=== PATIENT | male | born 1980 | race Caucasian/White ===

== ENCOUNTER → 2019-03-18 08:19 | Outpatient (BNVA) | payer MEDICAID, SELFPAY | PROVIDERS: Family Provider Nurse Practitioner Family; PCP Family Medicine | DX: I48.91 Unspecified atrial fibrillation (principal); I82.409 Acute embolism and thrombosis of unspecified deep veins of unspecified lower extremity | CPT/HCPCS: 85610 ==

== ENCOUNTER → 2019-04-11 08:32 | Outpatient (BNVA) | payer MEDICAID, SELFPAY | PROVIDERS: Family Provider Nurse Practitioner Family; PCP Family Medicine; Visit Provider Family Medicine | DX: N39.0 Urinary tract infection, site not specified (principal); R50.9 Fever, unspecified; I82.409 Acute embolism and thrombosis of unspecified deep veins of unspecified lower extremity; R31.9 Hematuria, unspecified | CPT/HCPCS: 81001; 85610; 87086; 87804 ==

== ENCOUNTER → 2019-04-27 09:01 | Outpatient (BNVA) | payer MEDICAID, SELFPAY | PROVIDERS: PCP Family Medicine; Visit Provider Family Medicine | DX: I82.409 Acute embolism and thrombosis of unspecified deep veins of unspecified lower extremity (principal) | CPT/HCPCS: 85610 ==

== ENCOUNTER 2019-05-03 06:58 | Outpatient (CLI) | payer MEDICAID, SELFPAY ==
--- NOTE | 2019-05-03 07:15 | US_ITS ---
WS: [id number] RENAL ULTRASOUND REASON FOR EXAM: Neurogenic bladder TECHNIQUE: Grayscale and Doppler ultrasound examination of the kidneys. FINDINGS: Right kidney: Right kidney measures 10.5 cm x 5.5 cm x 5.7 cm. Right kidney cortex measures 1.7 cm. N o hydronephrosis no stones. Left kidney: Left kidney measures 12.2 cm x 5.3 cm x 5.2 cm. Left kidney cortex measures 1.7 cm. No h ydronephrosis no stones. The aorta was normal no aneurysms. The urinary bladder appears to be essentially normal. US/US renal BI* [id number] IMPRESSION: Normal kidneys, ureters, and bladder.
== END 2019-05-03 06:59 | disposition home or self-care (01) ==
LOC: US 06:59
PROVIDERS: Family Provider Family Medicine; PCP Family Medicine; Visit Provider Urology
DX: N31.9 Neuromuscular dysfunction of bladder, unspecified (principal)
CPT/HCPCS: 76770

== ENCOUNTER 2019-05-03 08:27 | Outpatient (CLI) | payer MEDICAID, SELFPAY ==
--- NOTE | 2019-05-03 08:30 | CT_ITS ---
WS: [id number] CT LUMBAR SPINE, noncontrast. HISTORY: CLOSED UNSTABLE BURST FX OF 1ST LUMBAR VERTEBRA TECHNIQUE: Contiguous 2.5 mm axial imaging are performed. Sagittal and coronal reformats are submitte d and reviewed. All CT scans at [facility] use at least one of these dose optimization te chniques: automated exposure control; mA and/or kV adjustment per patient size (includes targeted exa ms where dose is matched to clinical indication); or iterative reconstruction. IV contrast: None DLP: 3103.4 mGy.cm COMPARISON: 02/01/2019 Posterior lumbar fusion extends from T11 to L3. No pedicle screws at the L1 level. Vertical rods are present bilaterally. L1 burst fracture is again identified without significant change. There is some increased sclerosis along the fracture line suggesting mild interval healing. Posterior retropulsion of the mid vertebral body by 5 mm. Slightly greater retropulsion into the LEFT subarticular recess by 7.5 mm. Fracture estimated at approximately 40%. No lucency around the pedicle screws or change in p osition. There is mild encroachment upon the ventral thecal sac, subarticular recesses and foramen at the T12- L1 level. Most significant encroachment into the subarticular recesses. Prior large laminectomy defec t at the L1 level. No residual central stenosis. Facet joint arthropathy at L1-2 and L2-3. Stable minimal compression deformity superior endplate of L2 with no change. CT/CT lumbar spine wo con* [id number] IMPRESSION: 1. Burst fracture of L1 is stable with mild interval healing. Fracture lines a re still evident. No hardware failure. 2. Posterior fusion extends from T12 to L3 with laminectomy defect at L1. 3. Burst fracture of L1 with mild encroachment into the subarticular recesses, ventral thecal sac and foramen. No interval change. 4. Healing minimal compression deformity superior endplate of L2.
== END 2019-05-03 08:28 | disposition home or self-care (01) ==
LOC: RAD 08:28
PROVIDERS: Family Provider Family Medicine; PCP Family Medicine; Visit Provider Specialist
DX: S32.012A Unstable burst fracture of first lumbar vertebra, initial encounter for closed fracture (principal); X58.XXXA Exposure to other specified factors, initial encounter; Z98.1 Arthrodesis status; N39.0 Urinary tract infection, site not specified; N31.9 Neuromuscular dysfunction of bladder, unspecified; Z87.440 Personal history of urinary (tract) infections; R33.9 Retention of urine, unspecified; R35.8 Other polyuria; F17.290 Nicotine dependence, other tobacco product, uncomplicated
CPT/HCPCS: 72131; 81001

== ENCOUNTER → 2019-05-13 09:06 | Outpatient (BNVA) | payer MEDICAID, SELFPAY | PROVIDERS: Family Provider Family Medicine; PCP Family Medicine; Visit Provider Family Medicine | DX: I82.409 Acute embolism and thrombosis of unspecified deep veins of unspecified lower extremity (principal) | CPT/HCPCS: 85610 ==

== ENCOUNTER → 2019-06-02 17:58 | Outpatient (BNVA) | payer MEDICAID, SELFPAY | PROVIDERS: Family Provider Family Medicine; PCP Family Medicine; Visit Provider Nurse Practitioner Family | DX: R19.7 Diarrhea, unspecified (principal) | CPT/HCPCS: 80053; 85610; 87493 ==

== ENCOUNTER → 2019-06-08 08:14 | Outpatient (BNVA) | payer MEDICAID, SELFPAY | PROVIDERS: Family Provider Family Medicine; PCP Family Medicine; Visit Provider Nurse Practitioner Family | DX: R19.7 Diarrhea, unspecified (principal) | CPT/HCPCS: 82274; 87338; 87505 ==

== ENCOUNTER → 2019-07-28 15:20 | Outpatient (BNVA) | payer MEDICAID, SELFPAY | PROVIDERS: Family Provider Family Medicine; PCP Family Medicine; Visit Provider Nurse Practitioner Family | DX: R31.9 Hematuria, unspecified (principal); I82.409 Acute embolism and thrombosis of unspecified deep veins of unspecified lower extremity; R10.9 Unspecified abdominal pain; R23.2 Flushing; R10.84 Generalized abdominal pain | CPT/HCPCS: 80053; 81003; 82150; 82607; 83690; 84443; 85025; 85610; 86308 ==

== ENCOUNTER 2019-08-02 07:44 | Outpatient (CLI) | payer MEDICAID, SELFPAY ==
--- NOTE | 2019-08-02 08:30 | CT_ITS ---
WS: [id number] CT LUMBAR SPINE, noncontrast. HISTORY: fracture lumbar vertebra TECHNIQUE: Contiguous 2.5 mm axial imaging are performed. Sagittal and coronal reformats are submitte d and reviewed. All CT scans at [facility] use at least one of these dose optimization te chniques: automated exposure control; mA and/or kV adjustment per patient size (includes targeted exa ms where dose is matched to clinical indication); or iterative reconstruction. IV contrast: None DLP: 2455.71 mGycm COMPARISON: 05/03/2019 Posterior thoracolumbar fusion extends from T11 to L3 with vertical rods and pedicle screws. No hardw are at the L1 level. L1 burst fracture is again identified with 5.8 mm of retropulsion of the posteri or superior endplate. Large posterior laminectomy defects at the L1 level. Comminuted fracture throug h the vertebral body involves the superior and inferior endplates and anterior and posterior endplate s. The extent of the retropulsion is unchanged. Mild deformity upon the ventral thecal sac with fract ure fragments extending into the subarticular recesses bilaterally. No progression over multiple prio r studies. Fracture lines at L1 are still apparent but there is healing. Again noted is a minimal anterior compression deformity superior endplate of L2 with healing. No loy tional or new fractures. No significant compromise of the central canal. Visualized retroperitoneum is normal. CT/CT lumbar spine wo con* [id number] IMPRESSION: 1. Status post thoracolumbar fusion for stabilization burst fracture of L1. 2. L1 burst fracture is stable with 5.3 mm retropulsion of the posterior super ior endplate and encroachment into the subarticular recesses. 3. No central stenosis at the L1 level due to a large posterior laminectomy de fect. 4. Minimal compression deformity of L2 is stable with healing.
== END 2019-08-02 07:45 | disposition home or self-care (01) ==
LOC: RADWPI 07:47
PROVIDERS: Family Provider Family Medicine; PCP Family Medicine; Visit Provider Specialist
DX: M43.26 Fusion of spine, lumbar region (principal); S32.011A Stable burst fracture of first lumbar vertebra, initial encounter for closed fracture; X58.XXXA Exposure to other specified factors, initial encounter; M43.8X6 Other specified deforming dorsopathies, lumbar region
CPT/HCPCS: 72131

== ENCOUNTER → 2019-08-16 09:38 | Outpatient (BNVA) | payer MEDICAID, SELFPAY | PROVIDERS: Family Provider Family Medicine; PCP Family Medicine; Visit Provider Family Medicine | DX: I82.409 Acute embolism and thrombosis of unspecified deep veins of unspecified lower extremity (principal) | CPT/HCPCS: 85610 ==

== ENCOUNTER 2019-08-25 08:07 | Outpatient (CLI) | payer MEDICAID, SELFPAY ==
[2019-08-25] MEDS: iohexol 300 mg/mL 100 mL Btl IV (09:07)
--- NOTE | 2019-08-25 10:00 | CT_ITS ---
WS: [id number] CT ABDOMEN PELVIS TECHNIQUE: Contrast-enhanced CT of the abdomen and pelvis with coronal and sagittal reformatted image s. CLINICAL INFORMATION: abdominal pain COMPARISON: CT July 29, 2018 DLP: 1359.[address] scans at [facility] use at least one of these dose optimization techniques: automat ed exposure control; mA and/or kV adjustment per patient size (includes targeted exams where dose is matched to clinical indication); or iterative reconstruction. FINDINGS: Prior postoperative changes thoracolumbar fusion T11-L3 for L1 burst fracture. Liver is normal. Norm al portal vein and splenic vein. Normal gallbladder. Normal spleen. Normal GE junction. No evidence o f small or large bowel obstruction. Lung bases are well aerated. Pancreas appears normal. Normal rashard kate abdominal aorta. Adrenal glands are normal. Normal renal parenchymal enhancement. Left renal cyst measuring 14 mm. No hydronephrosis. No abdominal lymphadenopathy. Mild sigmoid constipation. No inguinal lymphadenopathy. Incidental tiny fat-containing umbilical flory ia. CT/CT abdomen pelvis w con* [id number] IMPRESSION: 1. Mild sigmoid constipation. 2. No free fluid. 3. 14 mm left renal cyst. 4. Prior postoperative changes T11-L3 with laminectomy defects at L1 with stab le appearing burst fracture.
== END 2019-08-25 08:08 | disposition home or self-care (01) ==
LOC: RADWPI 08:08
PROVIDERS: Family Provider Family Medicine; PCP Family Medicine; Visit Provider Nurse Practitioner Family
DX: R10.9 Unspecified abdominal pain (principal); K59.00 Constipation, unspecified; Q61.01 Congenital single renal cyst
CPT/HCPCS: 74177; Q9967

== ENCOUNTER → 2019-12-13 09:18 | Outpatient (BNVA) | payer MEDICAID, SELFPAY | PROVIDERS: Family Provider Family Medicine; PCP Family Medicine; Visit Provider Nurse Practitioner Family | DX: R50.9 Fever, unspecified (principal) | CPT/HCPCS: 86618; 86666; 86757 ==

== ENCOUNTER 2019-12-26 09:04 | Outpatient (CLI) | payer MEDICAID, SELFPAY ==
[2019-12-26] MEDS: iohexol 300 mg/mL 100 mL Btl IV (10:28)
--- NOTE | 2019-12-26 10:30 | CT_ITS ---
WS: [id number] CT ABDOMEN PELVIS TECHNIQUE: Contrast-enhanced CT of the abdomen and pelvis with coronal and sagittal reformatted image s. CLINICAL INFORMATION: abd pain; fever COMPARISON: CT August 25, 2019 DLP: 1254.[address] scans at [facility] use at least one of these dose optimization techniques: automat ed exposure control; mA and/or kV adjustment per patient size (includes targeted exams where dose is matched to clinical indication); or iterative reconstruction. FINDINGS: Prior postoperative changes thoracolumbar fusion T11-L3 for L1 burst fracture. This is unchanged from previous. Liver is normal in appearance. Normal portal vein and splenic vein. Normal gallbladder. Sp massiel is normal in appearance. Normal GE junction. Lung bases are well aerated. Adrenal glands are normal. Normal renal parenchymal enhancement. No hydr onephrosis. Left renal cyst measuring 14 mm is unchanged. Normal pancreas. Normal portal vein and spl enic vein. Mild sigmoid constipation. No evidence of acute diverticulitis. No evidence of small or large bowel o bstruction. Normal appendix. Mild diffuse thickening of the bladder can be seen with chronic cystitis or bladder outlet obstruction. Prostate measures 4.1 x 4.3 cm slightly prominent for patient this ag e. Recommend correlation PSA. Tiny fat-containing umbilical hernia. CT/CT abdomen pelvis w con* [id number] IMPRESSION: 1. Liver and gallbladder are normal in appearance. 2. No hydronephrosis in either kidney. 3. Mild sigmoid constipation. No evidence of small or large bowel obstruction. 4. Mild diffuse bladder wall thickening can be seen with chronic cystitis or b ladder outlet obstruction. Prostate is somewhat prominent for patient this age. Recommend correlation PSA. 5. No abdominal or pelvic lymphadenopathy. 6. Prior postoperative changes thoracolumbar spine described above.
== END 2019-12-26 09:05 | disposition home or self-care (01) ==
LOC: RADWPI 09:05
PROVIDERS: Family Provider Family Medicine; PCP Family Medicine; Visit Provider Nurse Practitioner Family
DX: R10.9 Unspecified abdominal pain (principal); R50.9 Fever, unspecified; K59.00 Constipation, unspecified; N40.0 Benign prostatic hyperplasia without lower urinary tract symptoms
CPT/HCPCS: 74177; 80053; 81000; 83690; 85025; 87086; 87635; Q9967

== ENCOUNTER → 2020-01-12 09:15 | Outpatient (BNVA) | payer MEDICAID, SELFPAY | PROVIDERS: Family Provider Family Medicine; PCP Family Medicine; Visit Provider Urology | DX: R33.9 Retention of urine, unspecified (principal); N39.0 Urinary tract infection, site not specified; N31.9 Neuromuscular dysfunction of bladder, unspecified | CPT/HCPCS: 81003 ==

== ENCOUNTER → 2020-01-30 09:28 | Outpatient (BNVA) | payer MEDICAID, SELFPAY | PROVIDERS: Family Provider Family Medicine; PCP Family Medicine; Visit Provider Internal Medicine | DX: K92.1 Melena (principal) | CPT/HCPCS: 87635 ==

== ENCOUNTER 2020-02-03 07:43 | Day surgery (SDC) | payer MEDICAID, SELFPAY ==
[2020-02-02 07:17] VITALS: BMI 35.9
[2020-02-03 07:58] VITALS: BP 122/89; PULSE 79; RESP 18; TEMP 36.2; O2SAT 97
[2020-02-03] MEDS: sodium chloride 0.9% 1,000 ML 30 ML IV (08:12)
--- NOTE | 2020-02-03 08:46 | ANES.PREANE2 ---
Pre-Anesthetic Assessment Pre-Anesthetic Assessment: Height/Weight: Height 1.78 m Weight 113.398 kg Temp Pulse Resp BP Pulse Ox 97.1 F L 79 18 122/89 97 02/03/20 07:58 02/03/20 07:58 02/03/20 07:58 02/03/20 07:58 02/03/20 07:58 Preop Diagnosis: melena Proposed Procedure: Operation Date: 02/03/20 09:00 Proposed Procedures p EGD [id number] K92.1(Not Applicable) - Mathew Dominguez MD s Colonoscopy(Not Applicable) - Mathew Dominguez MD Familial anesthetic complications: None Was Beta Abimael taken within 24 hours: N/A Last intake: Intake Last Liquid Date 02/02/20 Last Liquid Time 23:00 Last Solid Date 02/01/20 Last Solid Time 08:00 Social: Social History: No alcohol and No tobacco Exam: Pre-Anes Outpt Exam: alert, oriented x 3, clear to auscultation bilaterally and regular rate & rhythm Airway: Cervical ROM: WNL MP: 3 Dentition: Full Neuropsych: Comments: neurogenic bladder d/t hx vertebral burst fracture. No paralysis. Self catheterizes Anesthetic Plan: Anesthesia: MAC Risk of > 500 ml blood loss (7ml/kg in children): No Meds/Allergies Current Medications: Current Medications Generic Name Dose Route Start Last Admin Trade Name Freq PRN Reason Stop Dose Admin Sodium Chloride 1,000 mls @ 30 ml s/hr 02/03/20 08:00 02/03/20 08:12 Sodium Chloride 0.9% IV 02/04/20 07:59 30 mls/hr .Q24H [place] Administration PFSH Anesthesia PFSH: Medical History Anxiety Burst fracture of lumbar vertebra with routine healing Cauda equina syndrome with neurogenic bladder Chronic back pain DVT (deep venous thrombosis) Hypersomnia Recurrent UTI Seasonal allergies Urinary retention Surgical History History of lumbar spinal fusion (~07/2018) Family History Father Hypertension Other Diabetes Social History Smoking and tobacco status: never smoked Second hand smoke exposure: Yes Alcohol intake: never Marital status: Single Current occupational status: employed Current occupation: strategic partnership manager [employer] History of recent travel: No Current gender identity: Male Data Anesthesia Cardiac Studies: No Data to Display
--- NOTE | 2020-02-03 09:10 | W.PM.OPSUD ---
Surgery/Procedure H&P Update DATE OF PROCEDURE: February 03, 2020 DATE H&P PERFORMED: 01/25/20 PREOP DIAGNOSIS: melena PLANNED PROCEDURE: Operation Date: 02/03/20 09:00 Proposed Procedures p EGD [id number] K92.1(Not Applicable) - Mathew Dominguez MD s Colonoscopy(Not Applicable) - Mathew Dominguez MD
[2020-02-03 09:42] VITALS: BP 116/79; PULSE 79; RESP 16; TEMP 36.1; O2SAT 95
--- NOTE | 2020-02-03 18:37 | ANE.PACU2 ---
Inpatient post-anesthesia follow up: Airway intact: Yes Vital signs: Temperature 97 F Pulse Rate 79 Respiratory Rate 16 Blood Pressure 116/79 Pulse Oximetry 95 Oxygen Delivery Me thod Nasal Cannula Oxygen Flow Rate 3 Fraction of Inspir ed Oxygen Hydration adequate: Yes Nausea and vomiting: No Pain level: 1 Mental status: Baseline
== END 2020-02-03 10:16 | disposition home or self-care (01) ==
PROVIDERS: PCP Family Medicine; Visit Provider Internal Medicine
PROC: 0DJ08ZZ Inspection of Upper Intestinal Tract, Via Natural or Artificial Opening Endoscopic (ICD-10-PCS; CPT 43235; principal; 2020-02-03 09:00)
PROC: 0DJD8ZZ Inspection of Lower Intestinal Tract, Via Natural or Artificial Opening Endoscopic (ICD-10-PCS; CPT 45378; 2020-02-03 09:00)
DX: K92.1 Melena (principal); Z82.49 Family history of ischemic heart disease and other diseases of the circulatory system; Z83.3 Family history of diabetes mellitus; K59.09 Other constipation; Z86.718 Personal history of other venous thrombosis and embolism; Z87.440 Personal history of urinary (tract) infections; Z98.1 Arthrodesis status
CPT/HCPCS: 12345; 43235; 45378; J2704; J7030

== ENCOUNTER → 2020-05-22 17:10 | Outpatient (BNVA) | payer MEDICAID, SELFPAY | PROVIDERS: PCP Family Medicine; Visit Provider Nurse Practitioner Family | DX: R19.7 Diarrhea, unspecified (principal); K58.9 Irritable bowel syndrome, unspecified; Z13.6 Encounter for screening for cardiovascular disorders; Z20.822 Contact with and (suspected) exposure to COVID-19 | CPT/HCPCS: 80053; 80061; 82306; 83735; 84443; 85025; 87635 ==

== ENCOUNTER → 2020-05-23 09:21 | Outpatient (BNVA) | payer MEDICAID, SELFPAY | PROVIDERS: PCP Family Medicine; Visit Provider Nurse Practitioner Family | DX: R19.7 Diarrhea, unspecified (principal) | CPT/HCPCS: 83630; 87493; 87506 ==

== ENCOUNTER → 2020-06-13 08:40 | Outpatient (BNVA) | payer MEDICAID, SELFPAY | PROVIDERS: PCP Family Medicine; Visit Provider Family Medicine | DX: R19.7 Diarrhea, unspecified (principal) | CPT/HCPCS: 87493 ==

== ENCOUNTER → 2020-07-11 13:17 | Outpatient (BNVA) | payer MEDICAID, SELFPAY | PROVIDERS: PCP Family Medicine; Visit Provider Internal Medicine | DX: R19.7 Diarrhea, unspecified (principal) | CPT/HCPCS: 87493 ==

== ENCOUNTER → 2021-01-15 10:20 | Outpatient (BNVA) | payer MEDICAID, SELFPAY | PROVIDERS: PCP Family Medicine; Visit Provider Nurse Practitioner Family | DX: Z20.822 Contact with and (suspected) exposure to COVID-19 (principal); Z20.828 Contact with and (suspected) exposure to other viral communicable diseases | CPT/HCPCS: 87635 ==

== ENCOUNTER → 2021-03-01 17:06 | Outpatient (BNVA) | payer MEDICAID, SELFPAY | PROVIDERS: PCP Family Medicine; Visit Provider Nurse Practitioner Family | DX: J01.00 Acute maxillary sinusitis, unspecified (principal); Z13.6 Encounter for screening for cardiovascular disorders; K58.9 Irritable bowel syndrome, unspecified; K21.9 Gastro-esophageal reflux disease without esophagitis | CPT/HCPCS: 80053; 80061; 82306; 85025 ==

== ENCOUNTER → 2022-03-26 14:48 | Outpatient (BNVA) | payer MEDICAID, SELFPAY | PROVIDERS: PCP Family Medicine; Visit Provider Nurse Practitioner Family | DX: J02.9 Acute pharyngitis, unspecified (principal); R05.9 Cough, unspecified; Z13.6 Encounter for screening for cardiovascular disorders; K21.9 Gastro-esophageal reflux disease without esophagitis; E55.9 Vitamin D deficiency, unspecified; Z20.822 Contact with and (suspected) exposure to COVID-19; J32.9 Chronic sinusitis, unspecified | CPT/HCPCS: 80053; 80061; 82306; 84443; 85025; 87071; 87400; 87426; 87880 ==

== ENCOUNTER → 2022-11-04 15:21 | Outpatient (BNVA) | payer MEDICAID, SELFPAY | PROVIDERS: PCP Nurse Practitioner Family; Visit Provider Nurse Practitioner Family | DX: R05.9 Cough, unspecified (principal) | CPT/HCPCS: 87426 ==

== ENCOUNTER → 2023-01-12 15:00 | Outpatient (BNVA) | payer MEDICAID, SELFPAY | PROVIDERS: PCP Nurse Practitioner Family; Visit Provider Nurse Practitioner Family | DX: E55.9 Vitamin D deficiency, unspecified (principal); F41.9 Anxiety disorder, unspecified; Z13.6 Encounter for screening for cardiovascular disorders | CPT/HCPCS: 80053; 80061; 82306; 84443; 85025 ==

== ENCOUNTER → 2023-01-13 08:15 | Outpatient (BNVA) | payer MEDICAID, SELFPAY | PROVIDERS: PCP Nurse Practitioner Family; Visit Provider Podiatrist Foot & Ankle Surgery | DX: B35.1 Tinea unguium (principal); M72.2 Plantar fascial fibromatosis; M24.571 Contracture, right ankle | CPT/HCPCS: 99203 ==

== ENCOUNTER → 2023-02-03 08:25 | Outpatient (BNVA) | payer MEDICAID, SELFPAY | PROVIDERS: PCP Nurse Practitioner Family; Visit Provider Podiatrist Foot & Ankle Surgery | DX: B35.1 Tinea unguium (principal); M72.2 Plantar fascial fibromatosis; M24.571 Contracture, right ankle | CPT/HCPCS: 99213 ==